=== PATIENT | female | born 1955 | race Caucasian/White ===

== ENCOUNTER 2017-06-30 13:11 | Emergency (ER) | payer MEDICARE ==
[2017-06-30 13:21] VITALS: BP 127/84
[2017-06-30] MEDS ORDERED: HYDROcod/ACETAM 5/325 MG TABLET PO STA (13:29)
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
[2017-06-30] MEDS ORDERED: HYDROcod/ACETAM 5/325 MG TABLET ONE (13:55)
--- NOTE | 2017-06-30 14:09 | XRAY Preliminary Report ---
Exam: XR WRIST 4 VIEW RT IMPRESSION: Mild displaced fracture of the base of the fifth metacarpal. [facility] SITE ID: [id number]
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
--- NOTE | 2017-06-30 14:12 | XRAY Preliminary Report ---
Exam: XR HAND 3 VIEW RT IMPRESSION: 1. Mildly displaced fracture of the proximal fifth metacarpal. 2. A Very small cortical lucency involving the fourth metacarpal diaphysis is Of indeterminate but qu estionable significance. No definite fourth metacarpal fracture. [facility] SITE ID: [id number]
--- NOTE | 2017-06-30 14:13 | XRAY Preliminary Report ---
Exam: XR KNEE 4 VIEW RT IMPRESSION: Normal knee radiography. [facility] SITE ID: [id number]
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
== END 2017-06-30 14:25 | disposition home or self-care (01) ==
LOC: ED 13:11
DX: S62.316A Displaced fracture of base of fifth metacarpal bone, right hand, initial encounter for closed fracture (principal); S80.01XA Contusion of right knee, initial encounter; S80.211A Abrasion, right knee, initial encounter; S63.501A Unspecified sprain of right wrist, initial encounter; V19.9XXA Pedal cyclist (driver) (passenger) injured in unspecified traffic accident, initial encounter; Y93.55 Activity, bike riding
CPT/HCPCS: 29125; 73110; 73130; 73564; 99283; A9270

== ENCOUNTER 2019-11-20 17:33 | Outpatient (CLI) | payer MEDICARE | END 2019-11-20 17:34 | disposition home or self-care (01) | LOC: COV 17:33 | PROVIDERS: ATTEND Family Medicine | DX: R05 Cough (principal); R50.9 Fever, unspecified | CPT/HCPCS: 81599; U0002 ==

== ENCOUNTER 2020-06-03 08:00 | Outpatient (CLI) | payer MEDICARE | END 2020-06-03 23:59 | disposition home or self-care (01) | LOC: LAB.R 08:00 | PROVIDERS: ATTEND Physician Assistant Medical | DX: R05 Cough (principal); R11.2 Nausea with vomiting, unspecified; Z20.828 Contact with and (suspected) exposure to other viral communicable diseases ==

== ENCOUNTER 2020-06-03 13:07 | Emergency (ER) | payer MEDICARE ==
[2020-06-03 13:43] LABS: BASOPHILS % (AUTO) 0.4 %; EOSINOPHILS # (AUTO) 0.1 10^3/uL (0.0-0.7); EOSINOPHILS % (AUTO) 0.6 %; HGB - HEMOGLOBIN 13.9 g/dL (12.0-16.0); LYMPHOCYTES # (AUTO) 1.4 10^3/uL (1.5-3.5); LYMPHOCYTES % (AUTO) 16.7 %; MEAN CORPUSCULAR HEMOGLOBIN 29.8 pg (27.0-31.0); MEAN CORPUSCULAR HGB CONC 32.9 g/dL (32.0-36.0); MEAN CORPUSCULAR VOLUME 90.6 fL (81.0-99.0); MEAN PLATELET VOLUME 10.5 fL (7.9-10.8); MONOCYTES # (AUTO) 0.7 10^3/uL (0.0-1.0); MONOCYTES % (AUTO) 8.5 %; NEUTROPHILS # (AUTO) 6.1 10^3/uL (1.5-6.6); NEUTROPHILS % (AUTO) 73.4 %; PLT - PLATELET COUNT 236 10^3/uL (130-450); RED BLOOD COUNT 4.67 10^6/uL (4.20-5.40); RED CELL DISTRIBUTION WIDTH 13.7 % (12.0-15.0); WHITE BLOOD COUNT 8.3 x10^3/uL (4.8-10.8)
--- NOTE | 2020-06-03 13:48 | XRAY Report ---
PROCEDURE: Chest 1 View X-Ray INDICATIONS: Chest Pain TECHNIQUE: One view of the chest was acquired. COMPARISON: None FINDINGS: Surgical changes and devices: None. Lungs and pleura: No pleural effusions or pneumothorax. Lungs are clear. Mediastinum: Mediastinal contours appear normal. Heart size is normal. Bones and chest wall: No suspicious bony lesions. Overlying soft tissues appear unremarkable. IMPRESSION: No acute cardiopulmonary disease process. Reviewed by: Beatrice Dillard MD, PhD on 06/03/2020 1:47 PM PDT Approved by: Beatrice Dillard MD, PhD on 06/03/2020 1:47 PM PDT Station ID: [id number]
[2020-06-03 13:56] LABS: ALBUMIN 4.4 g/dL (3.2-5.5); ALBUMIN/GLOBULIN RATIO 1.9 (1.0-2.2); BILIRUBIN,TOTAL 0.5 mg/dL (0.2-1.0); CALCIUM 9.6 mg/dL (8.5-10.3); CREATININE 0.9 mg/dL (0.4-1.0); TOTAL PROTEIN 6.7 g/dL (6.7-8.2)
--- NOTE | 2020-06-03 14:04 | ED Physician Documentation ---
History of Present Illness - Stated complaint Stated Complaint: SYNCOPAL EPISODE, VOMITING - Chief complaint Chief Complaint: General - History obtained from History obtained from: Patient, Family - History of Present Illness Timing: Prior to arrival - Additonal information Additional information: 64-year-old female is brought into the emergency department for evaluation of a syncopal episode that occurred yesterday evening. Patient reports that for 2 days she has had low-grade temperature elevation of 100 degrees, fatigue myalgias chills and diaphoresis. Yesterday she had vomited a number of times. In the evening she was on the toilet and when she stood up after having a bowel movement she fainted and fell into her 's arms. He reports that she had a very brief loss of consciousness with no seizure activity noted. Patient denies that she has had chest pain or shortness of breath. No diarrhea leg swelling or calf pain. No hx of DVT, Cancer She was seen earlier this morning at 1 of our local urgent cares where she had COVID-19 screening completed. However due to the syncopal episode she was advised to come to the ER for further evaluation She did by history have a total right knee replacement in February of this year. This was completed through [facility]. The postop course was complicated by a superficial skin infection for which she took a course of clindamycin. She does report some mild right knee swelling and warmth but there is no significant erythema. The incision is fully healed. She has been able to get back to biking vigorously and that she has no micromotion tenderness. Review of Systems Constitutional: reports: Fever, Chills, Myalgias, Fatigue Eyes: reports: Reviewed and negative Ears: reports: Reviewed and negative Nose: reports: Congestion. denies: Rhinorrhea / runny nose, Epistaxis, Sinus pressure / pain Throat: reports: Reviewed and negative Cardiac: reports: Reviewed and negative. denies: Chest pain / pressure, Palpitations, Pedal edema, Calf pain Respiratory: denies: Dyspnea, Cough, Hemoptysis, Wheezing GI: reports: Nausea, Vomiting. denies: Abdominal Pain, Abdominal Swelling, Constipation, Diarrhea, Hematemesis, Bloody / black stool : denies: Dysuria, Frequency, Hesitancy Skin: denies: Rash, Lesions Musculoskeletal: reports: Joint pain (right knee). denies: Neck pain, Back pain Neurologic: reports: Syncope, Confused. 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 - Present Medications Home Medications: Ambulatory Orders Medication Instructions Recorded Confirmed Celecoxib [CeleBREX] 100 mg PO BID 06/30/17 06/30/17 HYDROcod/ACETAM 5/325 [[place] 5/325] 1 - 2 ea PO Q6H PRN #15 tablet 06/30/17 clonazePAM [Clonazepam] 1 mg ORAL DAILY 06/30/17 06/30/17 - Allergies Allergies/Adverse Reactions: Allergies Allergy/AdvReac Type Severity Reaction Status Date / Time amoxicillin Allergy Rash Verified 06/03/20 13:17 cephalexin [From Keflex] Allergy Anaphylaxis Verified 06/03/20 13:17 Penicillins Allergy Anaphylaxis Verified 06/03/20 13:17 Sulfa (Sulfonamide Allergy Unknown Verified 06/03/20 13:17 Antibiotics) - Social History Does the pt smoke?: No Smoking Status: Never smoker Does the pt drink ETOH?: Yes Does the pt have substance abuse?: No - Immunizations Immunizations are current?: Yes - POLST Patient has POLST: No PD ED PE EXPANDED - General General: Alert, No acute distress, Well developed/nourished - HEENT HEENT: Atraumatic, PERRL, EOMI, Ears normal, Moist mucous membranes, Pharynx normal - Eyes Eyes: PERRL, Normal accommodation - Neck Neck: Supple w/out meningeal sx. No: No tenderness - Cardiac Cardiac: Regular Rate, Radial strong equal, Femoral strong equal, Pedal strong equal, Cap refill < 2 sec. No: Murmur Present - Respiratory Respiratory: Clear to ausultation rosalee. No: Distress, Labored - Abdomen Abdomen: Normal Bowel sounds. No: Tender to palpation - Back Back: Normal exam, Normal ROM. No: Vertebral tenderness, Soft tissue tenderness, CVA TTP right, CVA TTP left - Extremities Extremities: Right knee (Full range of motion right knee. Patient able to bear full weight. There is mild swelling of the knee but no erythema or significant warmth. Surgical incision is well-healed without drainage.) - Neuro Neuro: Alert and Oriented X 3, CNII-XII intact, Normal gait, Normal finger nose, Normal speech. No: Nystagmus - GCS Eye Opening: Spontaneous Motor: Obeys Commands Verbal: Oriented Total: 15 Results - Vitals Vitals: Vital Signs - 24 hr 06/03/20 13:11 Temperature 36.6 C Heart Rate 83 Respiratory 20 Rate Blood Pressure 142/87 H O2 Saturation 100 Oxygen O2 Source Room air - EKG (time done) 1325 Rate: Rate (enter#) (84) Rhythm: NSR [place]: Normal Intervals: Normal AR QRS: Normal Ischemia: Normal ST segments Compare to prior EKG: Old EKG unavailable Computer interpretation: Agree with computer - Labs Labs: Laboratory Tests 06/03/20 06/03/20 06/03/20 13:36 13:36 13:36 WBC 8.3 RBC 4.67 Hgb 13.9 Hct 42.3 MCV 90.6 MCH 29.8 MCHC 32.9 RDW 13.7 Plt Count 236 MPV 10.5 Neut # (Auto) 6.1 Lymph # (Auto) 1.4 L [place] # (Auto) 0.7 Eos # (Auto) 0.1 Baso # (Auto) 0.0 Absolute Nucleated RBC 0.00 Nucleated RBC % 0.0 Sodium 138 Potassium 3.7 Chloride 101 Carbon Dioxide 28 Anion Gap 9.0 BUN 22 H Creatinine 0.9 Estimated GFR (MDRD) 63 L Glucose 73 Calcium 9.6 Total Bilirubin 0.5 AST 29 ALT 27 Alkaline Phosphatase 59 Troponin I High Sens 4.7 C-Reactive Protein Total Protein 6.7 Albumin 4.4 Globulin 2.3 Albumin/Globulin Ratio 1.9 Lipase 27 TSH 06/03/20 06/03/20 13:36 13:36 WBC RBC Hgb Hct MCV MCH MCHC RDW Plt Count MPV Neut # (Auto) Lymph # (Auto) [place] # (Auto) Eos # (Auto) Baso # (Auto) Absolute Nucleated RBC Nucleated RBC % Sodium Potassium Chloride Carbon Dioxide Anion Gap BUN Creatinine Estimated GFR (MDRD) Glucose Calcium Total Bilirubin AST ALT Alkaline Phosphatase Troponin I High Sens C-Reactive Protein 1.9 H Total Protein Albumin Globulin Albumin/Globulin Ratio Lipase TSH 0.55 - Rads (name of study) CXR Radiology: Final report received (No acute cardiopulmonary process) PD MEDICAL DECISION MAKING - ED course Complexity details: reviewed results, re-evaluated patient, considered differential, d/w patient, d/w family ED course: 64-year-old female presents the emergency department for evaluation of 2 days fatigue, malaise low-grade temperature elevation vomiting and a syncopal episode last night. Seen earlier today at an outpatient urgent care and had COVID-19 screening completed. Unknown test results. By history and exam that this is most likely a viral etiology. Here in the emergency department she was given 1 L of IV fluids with marked improvement in her nausea. Her labs are relatively unremarkable. No leukocytosis. Because she did recently have a total knee replacement at had some discomfort in the right knee and a CRP was completed. It is noted to be 1.9. Without significant fever or leukocytosis or micromotion tenderness my suspicion for septic arthritis is exceedingly low. By Wells criteria I also do not feel that she has a PE that could have led to her syncopal episode last night. Her EKG here is sinus rhythm without any ischemic changes. High-sensitivity troponin is negative. She denies chest pain or dyspnea. I will recommend that she go home and drink lots of fluids and get plenty of rest. Emergent return precautions were discussed Departure - Departure Disposition: Home, Self Care Clinical Impression: Vomiting Qualifiers: Vomiting type: unspecified Vomiting Intractability: non-intractable Nausea presence: with nausea Qualified Code(s): R11.2 - Nausea with vomiting, unspecified Syncope Qualifiers: Syncope type: unspecified Qualified Code(s): R55 - Syncope and collapse Condition: Stable Record reviewed to determine appropriate education?: Yes Instructions: ED Diet Vomiting Wwo Diarrhea Ch, ED Dizziness Syncope Fainting W Pre Follow-Up: Zak Santiago MD [Primary Care Provider] - Comments: Aracely I hope that you are feeling better soon. I think that the most likely cause of your fever, nausea fatigue is a viral etiology. This could be COVID- 19. If your test is positive you will need to remain in quarantine for at least 14 days. I believe that you vomited last night and became dehydrated and that is why you had your fainting episode after getting up from the toilet. I would like you to use your nausea medication at home and take frequent sips of water or broth. If at any point you have a return of syncope, you develop chest pain or shortness of breath or have uncontrolled vomiting or diarrhea please return to the ER Reassuringly today your labs, EKG and chest x-ray are all essentially unremarkable
[2020-06-03] MEDS ORDERED: SODIUM CHLORIDE 0.9% 1,000 ML IV STA (14:14)
[2020-06-03 15:20] VITALS: BP 123/70
== END 2020-06-03 15:30 | disposition home or self-care (01) ==
LOC: ED 13:07
DX: R11.2 Nausea with vomiting, unspecified (principal); R55 Syncope and collapse; M25.561 Pain in right knee; Z96.651 Presence of right artificial knee joint; R05 Cough; Z20.828 Contact with and (suspected) exposure to other viral communicable diseases
CPT/HCPCS: 36415; 71045; 80053; 83690; 84443; 84484; 85025; 86140; 93005; 99283; 99284; U0004

== ENCOUNTER 2020-08-05 07:00 | Outpatient (CLI) | payer MEDICARE ==
--- NOTE | 2020-08-05 13:35 | XRAY Report ---
PROCEDURE: Lumbar Spine 2 View INDICATIONS: ACUTE LOW BACK PAIN TECHNIQUE: 2 views of the lumbar spine were acquired. COMPARISON: None. FINDINGS: Bones: There are 5 nonrib-bearing lumbar-type vertebral bodies of normal height. No evidence of fract ure. Degenerative straightening of the usual lumbar lordosis. Anterolisthesis of L3 on L4 measuring a pproximately 5 mm. Retrolisthesis of L1 on L2 measuring approximately 3 mm. Bulky facet hypertrophy a t every level in the lumbar spine. Disc space narrowing with degenerative endplate changes. There is probable moderate neural foraminal narrowing at L1-L2, L2-L3, and L3-L4. Mild to moderate osseous christopher ral foraminal narrowing at L4-L5 and L5-S1. Soft tissues: Overlying bowel gas pattern is normal. No suspicious soft tissue calcifications. IMPRESSION: Overall moderate degenerative changes in the lumbar spine. Reviewed by: Pete Lozano MD on 08/05/2020 1:34 PM PST Approved by: Pete Lozano MD on 08/05/2020 1:34 PM PST Station ID: [id number]
== END 2020-08-05 23:59 | disposition home or self-care (01) ==
LOC: DI.S 07:00
PROVIDERS: ATTEND Physician Assistant Medical
DX: M43.16 Spondylolisthesis, lumbar region (principal); M47.816 Spondylosis without myelopathy or radiculopathy, lumbar region; M51.36 Other intervertebral disc degeneration, lumbar region; M48.061 Spinal stenosis, lumbar region without neurogenic claudication; M51.37 Other intervertebral disc degeneration, lumbosacral region; M48.07 Spinal stenosis, lumbosacral region

== ENCOUNTER → 2020-08-10 | Outpatient (CLI) | payer MEDICARE ==
[2020-08-10 15:45] LABS: BILIRUBIN,URINE NEGATIVE (NEGATIVE); GLUCOSE, URINE (UA) NEGATIVE (NEGATIVE); KETONES,URINE (UA) NEGATIVE (NEGATIVE); LEUKOCYTE ESTERASE, URINE SMALL (NEGATIVE); NITRITE,URINE NEGATIVE (NEGATIVE); OCCULT BLOOD,URINE NEGATIVE (NEGATIVE); PROTEIN,URINE TRACE mg/dL (NEGATIVE); UROBILINOGEN,URINE 0.2 (NORMAL) E.U./dL (NORMAL)
[2020-08-10 15:54] LABS: CLARITY,URINE SL. CLOUDY (CLEAR)
[2020-08-10 16:03] LABS: AMORPHOUS SEDIMENT,UR Few /LPF; BACTERIA,URINE Few /HPF (None Seen); CRYSTALS,URINE 0-2 Calcium Oxalate /LPF; RBC,URINE None Seen /HPF (0-5); SQUAMOUS EPITHELIAL CELL,UR RARE Squamous (<= Few); WBC CLUMPS,URINE PRESENT
== END ==
LOC: LAB 14:35
PROVIDERS: ATTEND Thoracic Surgery (Cardiothoracic Vascular Surgery)
DX: R30.0 Dysuria (principal)
CPT/HCPCS: 81001; 87077; 87086; 87181

== ENCOUNTER 2020-08-30 15:10 | Outpatient (CLI) | payer MEDICARE | END 2020-08-30 23:59 | disposition home or self-care (01) | LOC: LAB.R 15:10 | PROVIDERS: ATTEND Physician Assistant Medical | DX: R30.0 Dysuria (principal) | CPT/HCPCS: 87086 ==

== ENCOUNTER 2022-03-21 09:46 | Emergency (ER) | payer MEDICARE ==
[2022-03-21 09:58] VITALS: BP 168/94
--- NOTE | 2022-03-21 10:02 | ED Physician Documentation ---
PD HPI LOWER EXT INJURY - Stated complaint Stated Complaint: L FOOT PAIN - Chief complaint Chief Complaint: Trauma Ext - History obtained from History obtained from: Patient - History of Present Illness PD HPI LOW EXT INJURY LOCATION: Left, Foot - Additional information Additional information: 66-year-old female presents with left foot pain after Yesterday. Patient states that she dropped pruning [place] on her foot on accident and sustained a minor abrasion to the top of her mid forefoot. She states that it continued to be painful today and it is very painful when she bears weight. Additionally the top of her foot feels swollen, so she is presented today to make sure that she does not have any fractures. Does not know when her last tetanus shot was. Reports moderate pain with ambulation, improved with rest Review of Systems Ten Systems: 10 systems reviewed and negative Constitutional: denies: Fever, Chills Skin: reports: Abrasion (s) (L foot). 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 - Present Medications Home Medications: Ambulatory Orders Medication Instructions Recorded Confirmed Celecoxib [CeleBREX] 100 mg PO BID 06/30/17 03/21/22 DULoxetine [Cymbalta] 40 mg PO DAILY 03/21/22 03/21/22 Pravastatin Sodium 20 mg PO HS 03/21/22 03/21/22 - Allergies Allergies/Adverse Reactions: Allergies Allergy/AdvReac Type Severity Reaction Status Date / Time amoxicillin Allergy Rash Verified 03/21/22 09:58 cephalexin [From Keflex] Allergy Anaphylaxis Verified 03/21/22 09:58 Penicillins Allergy Anaphylaxis Verified 03/21/22 09:58 Sulfa (Sulfonamide Allergy Unknown Verified 03/21/22 09:58 Antibiotics) - Social History Does the pt smoke?: No Smoking Status: Never smoker Does the pt drink ETOH?: Yes Does the pt have substance abuse?: No - Immunizations Immunizations are current?: Yes - POLST Patient has POLST: No PD ED PE NORMAL - Vitals Vital signs reviewed: Yes - General General: Alert and oriented X 3, No acute distress, Well developed/nourished, Other - HEENT HEENT: Atraumatic, PERRL, EOMI, Ears normal, Moist mucous membranes, Pharynx benign, Dentition benign, Other - Neck Neck: Supple, no meningeal sign, No bony TTP, No adenopathy, Thyroid normal, No JVD, No bruit, C-Spine cleared by NEXUS criteria, Other - Cardiac Cardiac: RRR, No murmur, No gallop, No rub, Strong equal pulses, Other - Abdomen Abdomen: Normal bowel sounds, Soft, Non tender, Non distended, No organomegaly, Other - Back Back: No CVA TTP, No spinal TTP, Other - Derm Derm: Normal color, Warm and dry, Other (superficial abrasion dorsum L foot) - Neuro Neuro: Alert and oriented X 3, superintendent production 2-12 intact, No motor deficit, No sensory deficit, Normal speech, Other - Psych Psych: Normal mood, Normal affect Results - Vitals Vitals: Vital Signs - 24 hr 03/21/22 09:55 Temperature 36.6 C Heart Rate 89 Respiratory 16 Rate Blood Pressure 168/94 H O2 Saturation 98 Oxygen O2 Source Room air PD MEDICAL DECISION MAKING - ED course Complexity details: reviewed old records, re-evaluated patient, d/w patient, d/w family ED course: Foot pain and swelling after dropping a heavy object on it. Tetanus shot updated while in the emergency department. X-rays negative for acute fracture. Patient was informed of her results, counseled to apply ice as needed and to take Tylenol and Motrin as needed for pain. Counseled the patient if she continued to have symptoms to return in 7 to 10 days for repeat x-ray imaging. Departure - Departure Disposition: 01 Home, Self Care Clinical Impression: Left foot pain Condition: Good Instructions: ED Sprain Foot Comments: There is no acute fracture seen on your x-ray today, however if he continued to have pain in 7 days return for repeat x-ray. In the meantime take Tylenol and Motrin as needed for pain, apply ice as needed for swelling and pain, and wear comfortable inserts into your shoes. Weight-bear as tolerated. Discharge Date/Time: 03/21/22 10:55
[2022-03-21] MEDS ORDERED: TETANUS/DIPHTHERIA/PERTUSSIS 0.5 ML SYRINGE IM ONE (10:03)
--- NOTE | 2022-03-21 10:39 | XRAY Report ---
PROCEDURE: Foot 3 View LT INDICATIONS: crush injury, midfoot pain TECHNIQUE: 3 views of the foot were acquired. COMPARISON: None FINDINGS: Bones: No fractures or dislocations. No suspicious bony lesions. Soft tissues: No tibiotalar joint effusion. Achilles tendon appears normal. IMPRESSION: No visualized acute fracture or dislocation. However, occult injury cannot be excluded. Recommend merly rt interval imaging follow-up in 7-10 days as clinically indicated for additional evaluation. Reviewed by: Ginette Castaneda MD on 03/21/2022 10:38 AM PDT Approved by: Ginette Castaneda MD on 03/21/2022 10:38 AM PDT Station ID: [id number]
== END 2022-03-21 10:55 | disposition home or self-care (01) ==
LOC: ED 09:46
DX: S90.812A Abrasion, left foot, initial encounter (principal); W20.8XXA Other cause of strike by thrown, projected or falling object, initial encounter
CPT/HCPCS: 90471; 99282; 99283

== ENCOUNTER 2022-09-08 07:00 | Outpatient (CLI) | payer MEDICARE ==
[2022-09-08 22:43] LABS: BACTERIAL VAGINOSIS DNA NEGATIVE (NEGATIVE); CANDIDA GLABRATA DNA NEGATIVE (NEGATIVE); CANDIDA GROUP DNA NEGATIVE (NEGATIVE); CANDIDA KRUSEI DNA NEGATIVE (NEGATIVE); TRICHOMONAS VAGINALIS DNA NEGATIVE (NEGATIVE)
[2022-09-08 23:36] LABS: CHLAMYDIA TRACHOMATIS DNA NEGATIVE (NEGATIVE); NEISSERIA GONORRHOEAE DNA NEGATIVE (NEGATIVE)
== END 2022-09-08 23:59 | disposition home or self-care (01) ==
LOC: LAB.S 07:00
PROVIDERS: ATTEND Physician Assistant
DX: N89.8 Other specified noninflammatory disorders of vagina (principal)
CPT/HCPCS: 81514; 87491; 87591; 87661

== ENCOUNTER 2022-12-08 08:00 | Outpatient (CLI) | payer MEDICARE ==
--- NOTE | 2022-12-08 10:54 | XRAY Report ---
PROCEDURE: Pelvis 1 View INDICATIONS: STRAIN OF LOWER BACK TECHNIQUE: 1 view(s) of the pelvis acquired. COMPARISON: None. FINDINGS: Bones: No fractures or dislocations. No suspicious bony lesions. 1 mild left and moderate right de generative hip joint space narrowing. Degenerative changes are present within the lower lumbar spine. Soft tissues: Visualized bowel gas pattern is normal. No suspicious soft tissue calcifications. 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 Reviewed by: Ginette Castaneda MD on 12/08/2022 10:53 AM PDT Approved by: Ginette Castaneda MD on 12/08/2022 10:53 AM PDT Station ID: [id number]
== END 2022-12-08 23:59 | disposition home or self-care (01) ==
LOC: DI.S 08:00
PROVIDERS: ATTEND Emergency Medicine
DX: S39.012A Strain of muscle, fascia and tendon of lower back, initial encounter (principal); M16.0 Bilateral primary osteoarthritis of hip; M47.816 Spondylosis without myelopathy or radiculopathy, lumbar region